=== PATIENT | male | born 1960 | race Caucasian/White ===

== ENCOUNTER 2017-04-02 12:09 | Emergency (ER) | payer MEDICARE ==
[~2017-04-02] VITALS: Ht 182.9 cm; Wt 72.6 kg
--- NOTE | ~2017-04-02 | CR63 ---
[facility] A Service of [facility] / [facility] RADIOLOGY TEXT RESULTS PATIENT: SOCORRO HEATH LOCATION: SED : 60 UNIT #: [id number] AGE: [address]: Neal Scott MD SEX: M ORDER DR: [id number] [place] [id number] E MR#: [id number] Acc #: [id number] NAME: SOCORRO HEATH : 1960 SEX: M STUDY DATE/TIME: 04/02/2017 12:29 UNIT: SED ROOM: STUDY DESCRIPTION: CR Chest 2 View Attending Physician: Neal Scott M.D. Ordering Physician: Neal Scott M.D. Primary Care Physician: Sue Cifuentes Aprn MEDICAL IMAGING REPORT This report is preliminary unless electronic signature is present. EXAM Chest 2 views 04/02/2017 1229 hours HISTORY 57-year-old man with 3-week history of cough and congestion. History of hypertension. COMPARISON 09/08/2014 FINDINGS Upright PA and lateral views of the chest demonstrate normal cardiac, mediastinal, hilar, and aortic contours. Lungs are hyperinflated with some flattening of the hemidiaphragms and increase in the retrosternal clear space on the lateral film suggesting underlying emphysematous change. There are stable calcified granulomata. There is no acute pulmonary density or pleural effusion. IMPRESSION Emphysematous and benign calcified granulomatous changes similar to 09/08/2014. No acute cardiopulmonary findings. Dictated by... Esther Cormier M.D. THIS IS AN ELECTRONICALLY VERIFIED REPORT Esther Cormier M.D. at 04/03/2017 9:16 AM AMADO/ramin TD: 04/02/2017 19:15 JOB #: [id number] [facility] A Service of [facility] / [facility] RADIOLOGY TEXT RESULTS PATIENT: SOCORRO HEATH LOCATION: SED : 60 UNIT #: [id number] AGE: [address]: Neal Scott MD SEX: M ORDER DR: MEDICAL IMAGING REPORT Page 1 of 1
[~2017-04-02 12:09] MED LIST: ADVAIR 5001 DISK W/D PO; ALPRAZOLAM; AMOXICILLIN500 M1 PO; COMPAZINE10 MG PO; CORTANE-B OTIC10 ML OT; DARVOCET-N 1001 TAB PO; DIOVAN160 MG PO; E-MYCIN250 MG PO; EFFEXOR XR150 MG PO; ENTEX PSE1 CAP.SR . PO; FLEXERIL PO; KLONOPIN PO; LEXAPRO; NAPROXEN PO; SEROQUEL PO; SERZONE PO; SPIRIVA18 MCG INH; ULTRAM PO; VICODIN PO; VOLTAREN75 MG PO; ZANAFLEX PO
== END 2017-04-02 14:32 | disposition home or self-care (01) ==
LOC: SED 12:09
DX: J44.1 Chronic obstructive pulmonary disease with (acute) exacerbation (principal); J20.9 Acute bronchitis, unspecified; J44.0 Chronic obstructive pulmonary disease with (acute) lower respiratory infection; F41.9 Anxiety disorder, unspecified; F17.210 Nicotine dependence, cigarettes, uncomplicated; Z98.890 Other specified postprocedural states; Z88.5 Allergy status to narcotic agent
CPT/HCPCS: 71020; 94640; 99284